=== PATIENT | female | born 1940 | race Caucasian/White ===

== ENCOUNTER 2018-05-13 22:16 | Emergency (ER) | payer MEDICARE, OTHER ==
--- NOTE | 2018-05-13 22:36 | ED Physician Documentation ---
PD HPI ABD PAIN - Stated complaint Stated Complaint: ABD PX - Chief complaint Chief Complaint: Abd Pain - History obtained from History obtained from: Patient - History of Present Illness Timing - onset: Today Timing - details: Gradual onset, Still present Quality: Cramping, Aching Location: Periumbilical, Suprapubic Associated symptoms: No: Diarrhea, Constipation, Dysuria, Hematuria Similar symptoms before: Has not had sx before Recently seen: Not recently seen - Additional information Additional information: Patient is a 77 year old female who is presenting to the emergency department for lower abdominal pain. patient states that it started earlier today. patient tried to go to sleep but the pain kept her up. patient denies any urinary complaints, diarrhea or constipation. Review of Systems Ten Systems: 10 systems reviewed and negative Constitutional: denies: Fever, Chills GI: reports: Abdominal Pain, Nausea. denies: Vomiting, Constipation, Diarrhea PD PAST MEDICAL HISTORY - Present Medications Home Medications: Ambulatory Orders Medication Instructions Recorded Confirmed Lisinopril 20 mg PO 05/13/18 Montelukast [Singulair] 10 mg PO QPM 05/13/18 05/13/18 Pravastatin [Pravachol] 10 mg PO 05/13/18 Ubidecarenone [Co Q-10] 50 mg PO 05/13/18 Amox/Clav 875/125 [Augmentin] 1 each PO TID #21 tablet 05/14/18 - Allergies Allergies/Adverse Reactions: Allergies Allergy/AdvReac Type Severity Reaction Status Date / Time codeine Allergy Emesis Verified 05/13/18 22:23 PD ED PE NORMAL - Vitals Vital signs reviewed: Yes - General General: Alert and oriented X 3 - HEENT HEENT: Atraumatic - Cardiac Cardiac: RRR - Respiratory Respiratory: No respiratory distress - Abdomen Abdomen: Soft - Derm Derm: Normal color - Extremities Extremities: No deformity - Neuro Eye Opening: Spontaneous PD ED PE EXPANDED - HEENT HEENT: Dry mucous membranes - Abdomen Abdomen: Tender to palpation, Periumbilical, Suprapubic. No: Rebound, Guarding Results - Vitals Vitals: Vital Signs - 24 hr 05/13/18 22:18 Temperature 36.8 C Heart Rate 87 Respiratory 18 Rate Blood Pressure 165/82 H O2 Saturation 97 Oxygen O2 Source Room air - Rads (name of study) ct abd pelvis Radiology: Final report received (mild diverticulitis) PD MEDICAL DECISION MAKING - ED course Complexity details: reviewed old records, reviewed results, re-evaluated patient, considered differential, d/w patient, d/w family ED course: Patient was seen and examined at bedside. IV access was gained and labs were drawn. Imaging was ordered. When patient returned from imaging she was found to have mild diverticulitis. patient was treated with tylenol and augmentin. patient was otherwise well appearing with normal vital signs. patient was given detailed discharge and follow up instructions. patient was stable for discharge with outpatient follow up. - Sepsis Event Vital Signs: Vital Signs - 24 hr 05/13/18 22:18 Temperature 36.8 C Heart Rate 87 Respiratory 18 Rate Blood Pressure 165/82 H O2 Saturation 97 Oxygen O2 Source Room air Departure - Departure Disposition: 01 Home, Self Care Clinical Impression: Diverticulitis of gastrointestinal tract Condition: Good Instructions: ED Diverticulitis Follow-Up: primary,care provider [Other] - Within 3 Days Prescriptions: Amox/Clav 875/125 [Augmentin] 1 each PO TID #21 tablet Comments: Your symptoms today are being caused by diverticulitis. You had your first dose of antibiotics tonight and you will be on them three times a day for the next week. You should try to take them with yogurt or probiotics to help avoid diarrhea or other GI issues. You can start with a clear liquid diet (aside from probiotics) and progress slowly. You can take tylenol or ibuprofen as needed for pain. You should follow up with your doctor this week for re-evaluation. You may return to the emergency department at any time for new, worsening or uncontrollable symptoms.
[2018-05-13 22:47] LABS: BILIRUBIN,URINE NEGATIVE (NEGATIVE); CLARITY,URINE CLEAR (CLEAR); GLUCOSE, URINE (UA) NEGATIVE (NEGATIVE); KETONES,URINE (UA) NEGATIVE (NEGATIVE); LEUKOCYTE ESTERASE, URINE SMALL (NEGATIVE); NITRITE,URINE NEGATIVE (NEGATIVE); OCCULT BLOOD,URINE TRACE-LYSE (NEGATIVE); PH,URINE 5.5 PH (5.0-7.5); PROTEIN,URINE NEGATIVE (NEGATIVE); UROBILINOGEN,URINE 0.2 (NORMAL) E.U./dL (NORMAL)
[2018-05-13 22:52] LABS: BASOPHILS % (AUTO) 0.2 %; EOSINOPHILS # (AUTO) 0.1 10^3/uL (0.0-0.7); HGB - HEMOGLOBIN 12.9 g/dL (12.0-16.0); LYMPHOCYTES # (AUTO) 1.4 10^3/uL (1.5-3.5); LYMPHOCYTES % (AUTO) 15.3 %; MEAN CORPUSCULAR HEMOGLOBIN 32.3 pg (27.0-31.0); MEAN CORPUSCULAR HGB CONC 35.4 g/dL (32.0-36.0); MEAN CORPUSCULAR VOLUME 91.1 fL (81.0-99.0); MEAN PLATELET VOLUME 7.8 fL (7.9-10.8); MONOCYTES % (AUTO) 10.7 %; NEUTROPHILS # (AUTO) 6.6 10^3/uL (1.5-6.6); NEUTROPHILS % (AUTO) 72.8 %; PLT - PLATELET COUNT 212 10^3/uL (130-450); RED BLOOD COUNT 3.98 10^6/uL (4.20-5.40); RED CELL DISTRIBUTION WIDTH 13.5 % (12.0-15.0); WHITE BLOOD COUNT 9.1 x10^3/uL (4.8-10.8)
[2018-05-13 22:55] LABS: BACTERIA,URINE None Seen /HPF (None Seen); RBC,URINE 0-5 /HPF (0-5); SQUAMOUS EPITHELIAL CELL,UR MOD Squamous (<= Few)
[2018-05-13 23:05] LABS: ALBUMIN 4.5 g/dL (3.2-5.5); ALBUMIN/GLOBULIN RATIO 1.5 (1.0-2.2); BILIRUBIN,TOTAL 0.5 mg/dL (0.2-1.0); CALCIUM 9.5 mg/dL (8.5-10.3); TOTAL PROTEIN 7.5 g/dL (6.7-8.2)
[2018-05-13] MEDS ORDERED: IOPAMIDOL-300 100 ML VIAL ONE (23:09)
--- NOTE | 2018-05-14 00:01 | CT Report ---
Reason: diffuse lower abd pain Procedure Date: 05/13/2018 Accession Number: [id number] / [id number] Procedure: CT - Abdomen/Pelvis W/ CPT Code: FULL RESULT: EXAM: CT ABDOMEN AND PELVIS EXAM DATE: 05/13/2018 11:45 PM. CLINICAL HISTORY: Severe lower abdominal pain this afternoon. Bloating. Difficult bowel movements. COMPARISONS: None. TECHNIQUE: Routine helical CT imaging was performed through the abdomen and pelvis. IV contrast: 100 mL Isovue 300. Enteric contrast: No. Reconstructions: Coronal and sagittal. In accordance with CT protocol optimization, one or more of the following dose reduction techniques were utilized for this exam: automated exposure control, adjustment of mA and/or KV based on patient size, or use of iterative reconstructive technique. FINDINGS: ABDOMEN: Liver: No significant abnormality. Stomach/Distal Esophagus: No significant abnormality. Gallbladder: Subtle fundal adenomyomatosis. No calcified gallstones. Bile Ducts: No significant abnormality. Pancreas: No significant abnormality. Spleen: No significant abnormality. Kidneys: Multiple peripelvic cysts versus right-sided hydronephrosis with UPJ obstruction pattern. Favor cysts considering normal parenchymal thickness as well as enhancement. Adrenals: No significant abnormality. Bowel: No obstruction. Average fecal residual. Inflammatory stranding is noted around the proximal to mid sigmoid colon. Moderate to severe sigmoid colon diverticulosis. No drainable collection. Appendix: Normal. Lymph Nodes: No pathologically enlarged nodes. Vasculature: Normal caliber aorta. Fluid: No significant free fluid. Abdominal Wall: No significant abnormality. Other: No significant abnormality. PELVIS: Uterus and Ovaries: No significant abnormality. Bladder: No significant abnormality. Lymph Nodes: No pathologically enlarged nodes. Fluid: No significant free fluid. Other: None. BONES: No suspicious bony lesions. LOWER CHEST: No significant consolidation or effusion. IMPRESSION: 1. Short segment mid to proximal sigmoid diverticulitis. 2. Moderate to severe sigmoid diverticulosis. No drainable abscess. No small bowel obstruction. [facility]
[2018-05-14] MEDS ORDERED: AMOX/CLAV 875 MG/125 MG TABLET PO STA (00:12)
[2018-05-14] MEDS ORDERED: ACETAMINOPHEN 500 MG TABLET PO STA (00:25)
[2018-05-14 00:26] VITALS: BP 156/70
[2018-05-17] MEDS ORDERED: IOPAMIDOL-300 100 ML VIAL IVP ONE (08:20)
== END 2018-05-14 00:30 | disposition home or self-care (01) ==
LOC: ED 22:16
DX: K57.32 Diverticulitis of large intestine without perforation or abscess without bleeding (principal)
CPT/HCPCS: 36415; 74177; 80053; 81001; 83690; 85025; 99284; A9270; Q9967; 81003; 87086